=== PATIENT | male | born 1995 | race Caucasian/White ===

== ENCOUNTER 2017-10-19 09:30 | Emergency (ER) | payer OTHER ==
[~2017-10-19] VITALS: Ht 188 cm; Wt 83.1 kg
[2017-10-19 09:34] VITALS: TEMP 36.8; Ht 188 cm; Wt 83.1 kg
[2017-10-19] MEDS ORDERED: XYLOCAINE 1%/SOD BICARB 20 ML VIAL INFIL ONE (10:00)
[2017-10-19 10:51] VITALS: BP 165/78; PULSE 72; O2SAT 98
--- NOTE | 2017-10-19 15:49 | EMERGENCY ROOM VISIT NOTE ---
History First contact with patient: 09:37 Chief Complaint: LACERATION/CUT (SUT/DERMABOND) Stated Complaint: CUT THUMB Nursing Triage Summary: pt reports cutting left thumb with knife while cutting food. History of Present Illness The patient is a 22 year old male who presents to the Emergency Room with complaints of a laceration to his left hand. The patient reports that he cut his finger with a knife approximately 30 minutes ago. He denies any significant bleeding, and rates his discomfort a 3 out of 10. Tetanus immunization is up-to-date. The patient is [id number]. Review of Systems 6 system review was performed and was negative except for pertinent positives and negatives as indicated in history of present illness Past Medical/Surgical History Medical Problems: (1) No significant past medical history Surgical Problems: (1) No history of previous surgery Family History Unremarkable Social History Smoking Status: Never Smoker Alcohol Use: occasionally Marital Status: single Occupation Status: [employer] student Current/Historical Medications No Active Prescriptions or Reported Meds Physical Exam Vital Signs Date Time Temp Pulse Resp B/P (MAP) Pulse Ox O2 Delivery O2 Flow Rate FiO2 10/19/17 10:51 72 16 165/78 98 10/19/17 09:34 36.8 76 20 142/85 97 Room Air Physical Exam CONSTITUTIONAL: Healthy and well nourished. She does not appear in any acute distress. HEENT: Normocephalic, atraumatic. Pupils equal, round and reactive. NECK: Full active range of motion without discomfort. MUSCULOSKELETAL: Examination of the left thumb shows a 1.5 cm laceration over the radial aspect of the thumb tip. The laceration does extend into the lateral margin of the nail, with a total nail laceration length of approximately 4 mm. No active bleeding noted. Capillary refill is less than 2 seconds. INTEGUMENTARY: No rash or other significant dermatologic conditions noted. NEUROLOGIC: Cranial nerves II-XII grossly intact. No focal neurologic deficits noted. Medical Decision & Procedures Medications Administered Medications (Trade) Dose Ordered Sig/Padmini Route Start Time Stop Time Status Last Admin Dose Admin Lidocaine HCl (Buffered Lidocaine 1% Inj) 20 ml ONE ONCE INFIL 10/19/17 10:00 10/19/17 10:01 DC 10/19/17 10:06 20 ML Procedure Laceration repair was performed by our physician graduate assistant student under my direct supervision. The patient also provided verbal consent for laceration repair under digital block anesthesia. Good digital block anesthesia was administered. The wound peripheral tissue was then cleansed with iodine, then the wound was irrigated with normal saline before closure using 5-0 nylon simple interrupted sutures. A bacitracin dressing was applied. ED Course Patient history and physical exam were performed. Nurse's notes were reviewed. Vital signs were reviewed and were normal. Laceration repair was performed under digital block anesthesia. The patient was provided additional verbal and written wound care instructions. Ice and elevation for swelling. Ibuprofen and Tylenol in alternating fashion as needed for pain relief. Suture removal in 14 days, or seek reevaluation sooner for any signs of wound infection. The patient was happy with plan of care, voiced understanding of all discharge instructions, and denied any pain at the time of discharge. Medical Decision Medication Reconcilliation Current Medication List: was personally reviewed by me Blood Pressure Screening Patient's blood pressure: Normal blood pressure Impression Primary Impression: Laceration of left thumb with damage to nail Departure Information Dispostion Home / Self-Care Condition GOOD Prescriptions No Active Prescriptions or Reported Meds Forms HOME CARE DOCUMENTATION FORM, IMPORTANT VISIT INFORMATION Patient Instructions [facility] Additional Instructions Keep wound clean and dry. Do not allow any crusting or dried blood to accumulate on sutures. If this occurs, use a 1:1 solution of hydrogen peroxide/ water on a Q-tip to clean the wound. Use an antibiotic ointment for 3-4 days, then let wound dry. Suture removal in 12-14 days. Return sooner for any signs of infection (increasing redness, swelling, drainage). Ice and elevate for swelling and pain. Ibuprofen 600 mg and/or Tylenol 1000 mg every 6 hrs as needed for pain. Problem Qualifiers Primary Impression: Laceration of left thumb with damage to nail Encounter type: initial encounter Foreign body presence: without foreign body Qualified Codes: S61.112A - Laceration without foreign body of left thumb with damage to nail, initial encounter
== END 2017-10-19 10:53 | disposition home or self-care (01) ==
LOC: C.EDB 09:33
DX: S61.112A Laceration without foreign body of left thumb with damage to nail, initial encounter (principal); W26.0XXA Contact with knife, initial encounter; Y93.G1 Activity, food preparation and clean up